=== PATIENT | male | born 1975 | race Caucasian/White ===

== ENCOUNTER 2022-09-18 08:35 | Day surgery (SDC) | payer BC ==
[~2022-09-18] VITALS: Ht 182.9 cm; Wt 118.8 kg
[~2022-09-18 08:35] MED LIST: CEFAZOLIN SOD 1 GM/ ISO 50 ML PREMIX IV ONE
[2022-09-18] MEDS ORDERED: BUPIVACAINE /PF 0.25% 30 ML VIAL INJ ONE (09:52)
[2022-09-18] MEDS ORDERED: KETOROLAC TROMETHAMINE 30 MG VIAL ONE (09:52)
[2022-09-18] MEDS ORDERED: LR 1,000 ML IV.SOLN IV ONE (09:52)
[2022-09-18] MEDS ORDERED: SUCCINYLCHOLINE CHLORIDE 20 MG/ML(QUELICIN) ONE (09:52)
[2022-09-18] MEDS ORDERED: DEXAMETHASONE SOD PHOSPHATE 4 MG/ML VIAL ONE (09:52)
[2022-09-18] MEDS ORDERED: MEPERIDINE 50 MG/ML VIAL ONE (09:52)
[2022-09-18] MEDS ORDERED: ROCURONIUM BROMIDE 10 MG/ML (ZEMURON) ONE (09:52)
[2022-09-18] MEDS ORDERED: hydrALAZINE HCL 20 MG/ML VIAL ONE (09:52)
[2022-09-18] MEDS ORDERED: DESFLURANE 15 MIN GAS INH ONE (09:52)
[2022-09-18] MEDS ORDERED: NS IRRIG SOLN 1000 ML IR ONE (09:52)
[2022-09-18] MEDS ORDERED: NS 1000 ML IV.SOLN IV ONE (09:52)
[2022-09-18] MEDS ORDERED: LABETALOL 200 MG/ 40ML VIAL ONE (09:52)
[2022-09-18] MEDS ORDERED: ONDANSETRON HCL 4 MG/2 ML VIAL ONE (09:52)
[2022-09-18] MEDS ORDERED: fentaNYL CITRATE/PF 100 MCG/2 ML AMP ONE (09:52)
[2022-09-18] MEDS ORDERED: METOCLOPRAMIDE HCL 10 MG/2 ML VIAL ONE (09:52)
[2022-09-18] MEDS ORDERED: SUGAMMADEX SODIUM 200 MG/2 ML VIAL IV ONE (09:52)
[2022-09-18] MEDS ORDERED: HYDROmorphone 1 MG/ML INJ. CARTRIDGE IVP PRN ×3 (11:15→11:30)
[2022-09-18] MEDS ORDERED: HYDROmorphone 2 MG/ML VIAL IVP PRN (11:15)
[2022-09-18] MEDS ORDERED: ONDANSETRON HCL 4 MG/2 ML VIAL IVP PRN (11:15)
[2022-09-18] MEDS ORDERED: D5/0.45 NS 1,000 ML IV SCH (11:30)
[2022-09-18] MEDS ORDERED: HYDROcodone/ACETAMIN 5-325 MG TAB (NORCO/ VICODIN) PO PRN ×2 (11:30)
[2022-09-18 13:58] VITALS: BP_SYST 129
== END 2022-09-18 13:30 | disposition home or self-care (01) ==
LOC: SMU 08:35 → SDS 08:35
PROVIDERS: ATTEND Colon & Rectal Surgery
DX: K80.12 Calculus of gallbladder with acute and chronic cholecystitis without obstruction (principal); E78.00 Pure hypercholesterolemia, unspecified; G47.33 Obstructive sleep apnea (adult) (pediatric); Z80.1 Family history of malignant neoplasm of trachea, bronchus and lung; Z79.899 Other long term (current) drug therapy; Z20.822 Contact with and (suspected) exposure to COVID-19
CPT/HCPCS: 87081; 47563; 36415; 74300; 88304; 87426; J3490 ×3; J0690; J1100; J0360; J1885; J2765; J2405; J0330; J3010; J2175; Q9967; J7120; J7030; 76000; C1727; C1758